=== PATIENT | female | born 1965 | race Two or more races ===

== ENCOUNTER 2018-02-10 13:46 | Outpatient (CLI) | payer OTHER | END 2018-02-10 15:14 | disposition home or self-care (01) | LOC: MAMO-SONO 13:46 | DX: R31.9 Hematuria, unspecified (principal) ==

== ENCOUNTER → 2018-03-05 | Emergency (ER) | payer OTHER ==
[~2018-03-05] VITALS: Ht 170.2 cm; Wt 57.2 kg
== END | disposition home or self-care (01) ==
LOC: ER 12:06
DX: S61.422A Laceration with foreign body of left hand, initial encounter (principal); W26.0XXA Contact with knife, initial encounter; Y93.89 Activity, other specified; Y92.098 Other place in other non-institutional residence as the place of occurrence of the external cause; Y99.8 Other external cause status

== ENCOUNTER 2019-05-17 11:36 | Outpatient (CLI) | payer OTHER ==
[~2019-05-17] VITALS: Ht 152.4 cm; Wt 59.0 kg
== END 2019-05-17 11:50 | disposition home or self-care (01) ==
LOC: OFIC 805 11:36
DX: J30.89 Other allergic rhinitis (principal); R09.81 Nasal congestion; R05 Cough; R49.0 Dysphonia

== ENCOUNTER 2021-03-05 09:51 | Outpatient (CLI) | payer OTHER | END 2021-03-05 10:13 | disposition home or self-care (01) | LOC: SONOGRAMA 09:51 | PROVIDERS: ATTEND Urology | DX: N30.00 Acute cystitis without hematuria (principal); R31.1 Benign essential microscopic hematuria ==

== ENCOUNTER 2022-05-12 19:35 | Emergency (ER) | payer OTHER ==
[~2022-05-12] VITALS: Ht 170.2 cm; Wt 58.1 kg
== END 2022-05-12 22:01 | disposition home or self-care (01) ==
LOC: ER 19:35
DX: F41.8 Other specified anxiety disorders (principal); K27.9 Peptic ulcer, site unspecified, unspecified as acute or chronic, without hemorrhage or perforation

== ENCOUNTER 2022-06-07 09:23 | Outpatient (CLI) | payer OTHER | END 2022-06-07 09:30 | disposition home or self-care (01) | LOC: NUCLEAR 09:23 | PROVIDERS: ATTEND Internal Medicine | DX: Z86.718 Personal history of other venous thrombosis and embolism (principal) ==

== ENCOUNTER 2024-02-10 14:27 | Outpatient (CLI) | payer OTHER | END 2024-02-10 14:33 | disposition home or self-care (01) | LOC: NUCLEAR 14:27 | DX: Z13.820 Encounter for screening for osteoporosis (principal); M81.0 Age-related osteoporosis without current pathological fracture ==

== ENCOUNTER 2025-01-16 13:18 | Outpatient (CLI) | payer OTHER | END 2025-01-16 13:21 | disposition home or self-care (01) | LOC: RAD 13:18 | PROVIDERS: ATTEND General Practice | DX: M25.511 Pain in right shoulder (principal); M79.601 Pain in right arm ==